=== PATIENT | female | born 1965 | race Caucasian/White ===

== ENCOUNTER 2022-03-12 13:42 | Outpatient (CLI) | payer OTHER, BC, SELFPAY ==
--- NOTE | 2022-03-12 14:09 | XR_ITS ---
WS: [id number] Exam: XR chest 2V* [id number] Date/Time of Exam: 03/12/2022 2:13 PM Reason For Exam: CHEST PAIN Comparison 10/06/2016. The lungs are hyperinflated and clear. Chronic interstitial changes. Normal cardiomediastinal silhoue tte. Bony structures are intact. No pleural effusions. XR/XR chest 2V* [id number] IMPRESSION: 1. Pulmonary hyperinflation with mild chronic interstitial change. No acute pro cess.
== END 2022-03-12 13:43 | disposition home or self-care (01) ==
LOC: RAD 13:44
PROVIDERS: PCP Family Medicine; Visit Provider Family Medicine
DX: R07.9 Chest pain, unspecified (principal)
CPT/HCPCS: 71046

== ENCOUNTER → 2023-09-14 15:44 | Outpatient (BNVA) | payer OTHER, BC, SELFPAY | PROVIDERS: PCP Family Medicine; Visit Provider Internal Medicine | DX: R06.02 Shortness of breath (principal) | CPT/HCPCS: 71046 ==